=== PATIENT | male | born 1970 | race Caucasian/White ===

== ENCOUNTER 2020-07-06 04:16 | Inpatient (IN) | payer SELFPAY ==
[~2020-07-06] VITALS: Ht 172.7 cm; Wt 99.0 kg
[2020-07-06] MEDS ORDERED: ASPIRIN 81 MG CHEW (CHILDREN'S ASA) PO ONE (04:30)
[2020-07-06] MEDS ORDERED: PANTOPRAZOLE 40 MG (PROTONIX) VIAL IV STA (04:31)
[2020-07-06] MEDS ORDERED: ONDANSETRON 4 MG/2 ML (SDV) Z0FRAN IVP STA (04:31)
[2020-07-06] MEDS ORDERED: morphine INJ 10 MG/ML 1ML (SYR OR VIAL) IVP STA ×3 (04:31→08:13)
[2020-07-06] MEDS ORDERED: LORazepam INJ 2 MG/ML (ATIVAN) VIAL IVP STA (04:34)
[2020-07-06] MEDS ORDERED: HOLD METFORMIN - RECEIVED CONTRAST 20 ML VIAL IV SCH ×2 (04:45→13:00)
[2020-07-06] MEDS ORDERED: IOHEXOL 350 MG/ML 150 ML (OMNIPAQUE 350) VIAL IV ONE (04:45)
[2020-07-06] MEDS ORDERED: NS 100 ML (IVPB) BAG IV ONE ×2 (04:45→13:00)
--- NOTE | 2020-07-06 04:49 | ED Chest Pain ---
General Chief Complaint: Chest Pain Stated Complaint: CHEST PAIN Source: patient, EMS History of Present Illness Date Seen by Provider: Jul 06, 2020 Time Seen by Provider: 04:16 Initial Comments 49 yo male presenting by EMS with complaints of sharp chest pains, epigastric pain, n/v, heartburn. He is complaining of sharp pains that have been hurting all night. He states that 2 to 3 months ago he was diagnosed with a PE and never completed treatment for that. He has a history of a prior heart attack several years ago and does not take any medication for that. He does drink alcohol on a daily basis and drank some last night to try and help with his pain. He feels more short of breath tonight. He activated EMS to have them bring him to be evaluated. He usually goes to [facility] but the [facility] ambulance service refused to take him north and brought him here instead. He reports smoking a pack of cigarettes a day. He is moaning and short tempered with staff. Severity/Quality: severe, sharp Location: substernal, epigastric Radiation: no radiation Activities at Onset: none Prior CP/Workup: heart attack (reports heart attack 6-8 years ago at [facility] when having similar pains) ASA po CLEARANCE REP: No NTG SL CLEARANCE REP: No Associated Symptoms: abdominal pain, back pain (chronic pain with radiation down his legs); No diaphoresis, No dizziness, No fatigue, No fever/chills, No headache; heartburn, nausea/vomiting, shortness of breath; No syncope Allergies and Home Medications Allergies Coded Allergies: No Known Drug Allergies (Unverified , 07/06/20) Home Medications Mirtazapine 15 Mg Tablet, 15 MG PO HS, (Reported) Quetiapine Fumarate 400 Mg Tablet, 400 MG PO HS, (Reported) Patient Home Medication List Home Medication List Reviewed: Yes Review of Systems Review of Systems Constitutional: No chills, No diaphoresis, No fever EENTM: No Symptoms Reported Respiratory: Shortness of Air Cardiovascular: See HPI Gastrointestinal: Abdominal Pain (epigastric), Nausea, Vomiting Genitourinary: No Symptoms Reported Musculoskeletal: back pain (chronic pain in low back that radiates down his legs and has frequent falls) Skin: other (multiple sores at waist line) Psychiatric/Neurological: Anxiety Hematologic/Lymphatic: Blood Clots (reported PE diagnosed in [place] about 2 months ago but not taking medicine for it) Past Dhwtoig-Lvrfmh-Tkcrom Hx Past Med/Social Hx: Reviewed Nursing Past Med/Soc Hx Patient Social History Alcohol Use: Regular Use Alcohol Beverage of Choice: Vodka Smoking Status: Current Everyday Smoker Type Used: Cigarettes Past Medical History Respiratory: Yes COPD Cardiac: Yes Heart Attack, Hypertension Physical Exam Vital Signs Vital Signs - First Documented 07/06/20 07/06/20 07/06/20 04:20 05:40 06:12 Temp 37.4 Pulse 106 Resp 18 B/P (MAP) 127/68 (87) Pulse Ox 92 O2 Delivery Room Air O2 Flow Rate 2.00 Capillary Refill : Height, Weight, BMI Height: '" Weight: lbs. oz. kg; BMI Method: General Appearance: Moderate Distress (moaning and short tempered with staff), Obese HEENT: PERRL/EOMI Neck: Full Range of Motion, Non Tender, Supple Respiratory: Chest Non Tender, No Accessory Muscle Use, No Respiratory D istress, Decreased Breath Sounds Cardiovascular: Regular Rate, Rhythm, Normal Peripheral Pulses Gastrointestinal: Normal Bowel Sounds, No Pulsatile Mass, Soft, Tenderness (diffuse but worse in epigastric area) Extremity: Normal Capillary Refill, Pedal Edema (1+ BLE) Neurologic/Psychiatric: Alert, Oriented x3, sales secretary II-XII Norm as Tested Skin: Normal Color, Warm/Dry, Other (multiple tattoos. several small red areas in groin where he appears to have ticks attached) Images 1 - pain in substernal and epigastric area worse with palpation Progress/Results/Core Measures Results/Orders Lab Results Laboratory Tests Test 07/06/20 05:40 07/06/20 06:47 07/06/20 07:45 Range/Units White Blood Count 14.1 H 4.3-11.0 10^3/uL Red Blood Count 5.32 4.35-5.85 10^6/uL Hemoglobin 13.8 13.3-17.7 G/DL Hematocrit 42 40-54 % Mean Corpuscular Volume 80 80-99 FL Mean Corpuscular Hemoglobin 26 25-34 PG Mean Corpuscular Hemoglobin Concent 33 32-36 G/DL Red Cell Distribution Width 20.1 H 10.0-14.5 % Platelet Count 281 130-400 10^3/uL Mean Platelet Volume 9.6 7.4-10.4 FL Immature Granulocyte % (Auto) 0 % Neutrophils (%) (Auto) 76 H 42-75 % Lymphocytes (%) (Auto) 18 12-44 % Monocytes (%) (Auto) 5 0-12 % Eosinophils (%) (Auto) 0 0-10 % Basophils (%) (Auto) 0 0-10 % Neutrophils # (Auto) 10.7 H 1.8-7.8 X 10^3 Lymphocytes # (Auto) 2.5 1.0-4.0 X 10^3 Monocytes # (Auto) 0.8 0.0-1.0 X 10^3 Eosinophils # (Auto) 0.0 0.0-0.3 10^3/uL Basophils # (Auto) 0.1 0.0-0.1 10^3/uL Immature Granulocyte # (Auto) 0.1 0.0-0.1 10^3/uL Neutrophils % (Manual) 78 % Monocytes % (Manual) 8 % Band Neutrophils 14 % Prothrombin Time 13.3 12.2-14.7 SEC INR Comment 1.0 0.8-1.4 Activated Partial Thromboplast Time 29 24-35 SEC D-Dimer 0.57 H 0.00-0.49 UG/ML Blood Gas Puncture Site LEFT RADIAL Blood Gas Patient Temperature 37.4 Arterial Blood pH 7.44 H 7.37-7.43 Arterial Blood Partial Pressure CO2 48 H 35-45 MMHG Arterial Blood Partial Pressure O2 46 L 79-93 MMHG Arterial Blood HCO3 33 H 23-27 MMOL/L Arterial Blood Total CO2 34.1 H 21.0-31.0 MMOL/L Arterial Blood Oxygen Saturation 83 L 94-100 % Arterial Blood Base Excess 7.3 H -2.5-2.5 MMOL/L Tito Test NEGATIVE Blood Gas Ventilator Setting NO Blood Gas Inspired Oxygen ROOM AIR Sodium Level 141 135-145 MMOL/L Potassium Level 3.7 3.6-5.0 MMOL/L Chloride Level 93 L 98-107 MMOL/L Carbon Dioxide Level 28 21-32 MMOL/L Anion Gap 20 H 5-14 MMOL/L Blood Urea Nitrogen 20 H 7-18 MG/DL Creatinine 0.59 L 0.60-1.30 MG/DL Estimat Glomerular Filtration Rate > 60 BUN/Creatinine Ratio 34 Glucose Level 84 70-105 MG/DL Calcium Level 9.3 8.5-10.1 MG/DL Corrected Calcium 8.5-10.1 MG/DL Magnesium Level 2.0 1.6-2.4 MG/DL Total Bilirubin 0.3 0.1-1.0 MG/DL Aspartate Amino Transf (AST/SGOT) 29 5-34 U/L Alanine Aminotransferase (ALT/SGPT) 30 0-55 U/L Alkaline Phosphatase 110 40-136 U/L Troponin I < 0.30 < 0.30 <0.30 NG/ML Pro-B-Type Natriuretic Peptide 59.0 <75.0 PG/ML Total Protein 8.0 6.4-8.2 GM/DL Albumin 4.6 H 3.2-4.5 GM/DL Lipase 11 8-78 U/L Serum Alcohol 168 H <10 MG/DL Urine Color YELLOW Urine Clarity CLEAR Urine pH 6.0 5-9 Urine Specific Mears >=1.030 1.016-1.022 Urine Protein 2+ H NEGATIVE Urine Glucose (UA) NEGATIVE NEGATIVE Urine Ketones 1+ H NEGATIVE Urine Nitrite NEGATIVE NEGATIVE Urine Bilirubin NEGATIVE NEGATIVE Urine Urobilinogen 0.2 < = 1.0 MG/DL Urine Leukocyte Esterase NEGATIVE NEGATIVE Urine RBC (Auto) NEGATIVE NEGATIVE Urine RBC NONE /HPF Urine WBC 0-2 /HPF Urine Crystals NONE /LPF Urine Bacteria TRACE /HPF Urine Casts PRESENT /LPF Urine Hyaline Casts 0-2 H /LPF Urine Mucus SMALL H /LPF Urine Culture Indicated NO Urine Opiates Screen NEGATIVE NEGATIVE Urine Oxycodone Screen NEGATIVE NEGATIVE Urine Methadone Screen NEGATIVE NEGATIVE Urine Propoxyphene Screen NEGATIVE NEGATIVE Urine Barbiturates Screen NEGATIVE NEGATIVE Ur Tricyclic Antidepressants Screen POSITIVE H NEGATIVE Urine Phencyclidine Screen NEGATIVE NEGATIVE Urine Amphetamines Screen NEGATIVE NEGATIVE Urine Methamphetamines Screen NEGATIVE NEGATIVE Urine Benzodiazepines Screen NEGATIVE NEGATIVE Urine Cocaine Screen NEGATIVE NEGATIVE Urine Cannabinoids Screen NEGATIVE NEGATIVE My Orders Orders - KARLEY OSORIO MD Cbc With Automated Diff (07/06/20 04:30) Magnesium (07/06/20 04:30) Chest 1 View Ap/Pa Only (07/06/20 04:30) Ekg Tracing (07/06/20 04:30) Comprehensive Metabolic Panel (07/06/20 04:30) Protime With Inr (07/06/20 04:30) Partial Thromboplastin Time (07/06/20 04:30) O2 (07/06/20 04:30) Monitor-Rhythm Ecg Trace Only (07/06/20 04:30) Aspirin Chewable Tablet (Baby Aspirin Ch (07/06/20 04:30) Ed Iv/Invasive Line Start (07/06/20 04:30) Lipase (07/06/20 04:30) Troponin I Fs (07/06/20 04:30) Probnp Fs (07/06/20 04:30) Pantoprazole Injection (Protonix Injecti (07/06/20 04:31) Alcohol (07/06/20 04:33) Ua Culture If Indicated (07/06/20 04:33) Drug Screen Stat (Urine) (07/06/20 04:33) Iohexol Injection (Omnipaque 350 Mg/Ml 1 (07/06/20 04:45) Received Contrast (Hold Metformin- Contr (07/06/20 04:45) Ns (Ivpb) (Sodium Chloride 0.9% Ivpb Bag (07/06/20 04:45) Ondansetron Oral Dissolve Tab (Zofran (07/06/20 05:09) Lidocaine 2% Viscous 15 Ml (Xylocaine Vi (07/06/20 05:15) Antacid Suspension (Mylanta Suspension (07/06/20 05:15) Nitroglycerin Ointment (Nitrobid Ointme (07/06/20 05:12) Manual Differential (07/06/20 05:40) Arterial Blood Gas (07/06/20 05:40) Morphine Injection (Morphine Injection (07/06/20 06:22) Enoxaparin Injection (Lovenox Injection) (07/06/20 06:22) Ns Iv 1000 Ml (Sodium Chloride 0.9%) (07/06/20 06:22) Fibrin Degradation Products (07/06/20 07:28) Morphine Injection (Morphine Injection (07/06/20 08:13) Medications Given in ED Vital Signs/I&O 07/06/20 07/06/20 07/06/20 07/06/20 04:20 04:20 05:40 06:12 Temp 37.4 37.4 Pulse 106 98 Resp 18 18 B/P (MAP) 127/68 (87) Pulse Ox 92 99 99 O2 Delivery Room Air Room Air Nasal Cannula Nasal Cannula O2 Flow Rate 2.00 2.00 2.00 07/06/20 07/06/20 08:38 09:00 Temp 37.4 37.4 Pulse 97 Resp 14 B/P (MAP) 137/90 (87) Pulse Ox 95 O2 Delivery Nasal Cannula O2 Flow Rate 2.00 Progress Progress Note #1: Progress Note placed on cardiac slitting machine operator helper with complaint of chest pain and initial rate of 100 with sinus rhythm without ectopy. Patient is hypoxic so will place on oxygen and order aspirin as well as Morphine for pain, Zofran for nausea, protonix for epigastric pain/heartburn. Progress Note #2: Progress Note Patient was a very difficult IV access patient and took multiple sticks to be able to obtain blood as well as a small 22-gauge IV access. He finally had an ABG drawn and arterial blood drawn to be able to get blood work. He has improvement in his pain with getting a GI cocktail for the burning sensation. He had improved epigastric and chest pain after morphine. His initial EKG does not show any ST elevation. His initial labs show a negative troponin at less than 0.3. His alcohol level did come back elevated at 168. He had a mild elevation of his white blood cell count of 14.1 with a left shift. His chest x- ray was clear without acute infiltrate or effusion. He does have a calcified granuloma in the right lateral lung. With his ABG he appeared to be somewhat compensated with a pH of 7.44, PCO2 of 68, P O2 64 and a O2 sat of 83% on room air. With 2 L by nasal cannula and moving his O2 sat probe to his forehead to be able to pickler helper his saturation better he did have levels of 96-100%. He was somnolent when he was not being stuck for blood but would still intermittently moan and cry out. He repeatedly asked for pain medicine and when he was told he was being given Morphine his pain almost immediately went from 9 out of 10 to 3-4 out of 10. With his report of recent untreated or only partially treated PE, hypoxia, history of alcohol abuse, history of reported heart attack will discuss admit with Hospitalist. Will give Lovenox 1 mg/kg while waiting on all of his results and to discuss with the hospitalist. 0725 d/w Dr. Pearce and will admit for hypoxia, chest pain. Add on D dimer to his coags and may need to have additional IV access or testing in [facility] since he reports history of recent PE and blood clots but has not been taking medicine. Initial ECG Impression Date: Jul 06, 2020 Initial ECG Impression Time: 04:29 Initial ECG Rate: 99 Initial ECG Rhythm: Normal Sinus Initial ECG Comparisson: No Previous ECG Available Comment Normal sinus rhythm with a heart rate of [address] elevation. QT interval 362 ms with a QTc interval 465 ms. No prior tracing available for comparison. Diagnostic Imaging Diagonstic Imaging: Xray Plain Films/CT/US/NM/MRI: chest Comments poor inspiratory effort, nodule in right lateral lung, increased perihilar lung markings and blunting of the costophrenic angles on my review of his 1 view CXR. NAME: FAVIAN SEARS [facility] REC#: [id number] PT STATUS: REG ER : 1970 PHYSICIAN: KARLEY OSORIO MD ADMIT DATE: 07/06/20/ER FS Draft Date of Exam:07/06/20 CHEST 1 VIEW AP/PA ONLY Indication: Chest pain Portable chest 4:46 AM Heart size and pulmonary vascularity are normal. There is calcified granuloma in the right lower lateral chest. There are no infiltrates, effusions or pneumothoraces. IMPRESSION: No acute abnormalities in the chest. Dictated on workstation # [id number] Dict: 07/06/20 0639 Trans: 07/06/20 0640 [facility] [id number] Interpreted by: BERHANE GREEN MD Electronically signed by: Reviewed: Reviewed by Me Departure Communication (Admissions) Time/Spoke to Admitting Phy: 07:25 d/w Dr. Pearce about admit for chest pain, hypoxia and to get serial enzymes and possible CT angiogram and further work up of untreated PE. Time/Spoke to Consulting Phy: 07:[address] Webb to let him know about the consult on the chest pain and h ypoxia patient Impression Primary Impression: Hypoxia Additional Impressions: Alcohol intoxication Qualified Codes: F10.920 - Alcohol use, unspecified with intoxication, uncomplicated Substernal chest pain Epigastric abdominal pain Tick bite of groin Qualified Codes: S30.861A - Insect bite (nonvenomous) of abdominal wall, initial encounter; W57.XXXA - Bitten or stung by nonvenomous insect and other nonvenomous arthropods, initial encounter Disposition: 30 STILL A PATIENT Condition: Stable Admissions Decision to Admit Reason: Admit from ER (General) Decision to Admit/Date: Jul 06, 2020 Time/Decision to Admit Time: 07:25 KARELY OSORIO MD Jul 06, 2020 04:49
[2020-07-06] MEDS ORDERED: ONDANSETRON 4 MG (ZOFRAN) ORAL DISSOLVE TAB PO STA (05:09)
[2020-07-06] MEDS ORDERED: morphine INJ 10 MG/ML 1ML (SYR OR VIAL) IM STA (05:09)
[2020-07-06] MEDS ORDERED: LORazepam INJ 2 MG/ML (ATIVAN) VIAL IM STA (05:09)
[2020-07-06] MEDS ORDERED: NITROGLYCERIN 2% OINT 1 GM UNIT DOSE PACKET TOP STA (05:12)
[2020-07-06] MEDS ORDERED: LIDOCAINE 2% VISCOUS 15 ML UDC PO ONE (05:15)
[2020-07-06] MEDS ORDERED: ANTACID SUSP 30 ML UDC (MYLANTA) PO ONE (05:15)
[2020-07-06 05:44] LABS: HEMATOCRIT 42 % (40-54); HEMOGLOBIN 13.8 G/DL (13.3-17.7); MEAN CORPUSCULAR HEMOGLOBIN 26 PG (25-34); WHITE BLOOD COUNT 14.1 10^3/uL (4.3-11.0)
[2020-07-06 05:45] LABS: BASOPHILS # (AUTO) 0.1 10^3/uL (0.0-0.1); BASOPHILS % (AUTO) 0 % (0-10); EOSINOPHILS % (AUTO) 0 % (0-10); LYMPHOCYTES # (AUTO) 2.5 X 10^3 (1.0-4.0); LYMPHOCYTES % (AUTO) 18 % (12-44); MEAN CORPUSCULAR HGB CONC 33 G/DL (32-36); MEAN CORPUSCULAR VOLUME 80 FL (80-99); MEAN PLATELET VOLUME 9.6 FL (7.4-10.4); MONOCYTES # (AUTO) 0.8 X 10^3 (0.0-1.0); MONOCYTES % (AUTO) 5 % (0-12); NEUTROPHILS # (AUTO) 10.7 X 10^3 (1.8-7.8); NEUTROPHILS % (AUTO) 76 % (42-75); PLATELET COUNT 281 10^3/uL (130-400)
[2020-07-06 05:51] LABS: ABG BASE EXCESS 7.3 MMOL/L (-2.5-2.5); ABG OXYGEN SATURATION 83 % (94-100); ABG PCO2 48 MMHG (35-45); ABG PH 7.44 (7.37-7.43); ABG PO2 46 MMHG (79-93); ABG TCO2 34.1 MMOL/L (21.0-31.0)
[2020-07-06 05:52] LABS: ALLENS TEST NEGATIVE
[2020-07-06 05:53] LABS: INSPIRED O2 ROOM AIR; PATIENT TEMP 37.4; VENTILATOR NO
[2020-07-06 05:55] LABS: PROTHROMBIN TIME PATIENT 13.3 SEC (12.2-14.7)
[2020-07-06 06:01] LABS: LIPASE 11 U/L (8-78)
[2020-07-06 06:04] LABS: CARBON DIOXIDE 28 MMOL/L (21-32); CHLORIDE 93 MMOL/L (98-107); POTASSIUM 3.7 MMOL/L (3.6-5.0); SODIUM 141 MMOL/L (135-145)
[2020-07-06 06:05] LABS: ALANINE AMINOTRANSFERASE 30 U/L (0-55); ALBUMIN 4.6 GM/DL (3.2-4.5); ALKALINE PHOSPHATASE 110 U/L (40-136); BILIRUBIN,TOTAL 0.3 MG/DL (0.1-1.0); BUN/CREATININE RATIO 34; CALCIUM 9.3 MG/DL (8.5-10.1); CREATININE SERUM 0.59 MG/DL (0.60-1.30); GFR ESTIMATED > 60; GLUCOSE 84 MG/DL (70-105)
[2020-07-06 06:22] LABS: BAND NEUTROPHILS 14 %; MONOCYTES % (MANUAL) 8 %; NEUTROPHILS % (MANUAL) 78 %
[2020-07-06] MEDS ORDERED: ENOXAPARIN 100 MG/1 ML (LOVENOX) SYR SC STA (06:22)
[2020-07-06] MEDS ORDERED: NS IV 1000 ML 1,000 ML IV STA (06:22)
--- NOTE | 2020-07-06 06:41 | Diagnostic Imaging Report ---
Indication: Chest pain Portable chest 4:46 AM Heart size and pulmonary vascularity are normal. There is calcified granuloma in the right lower lateral chest. There are no infiltrates, effusions or pneumothoraces. IMPRESSION: No acute abnormalities in the chest. Dictated by: Dictated on workstation # [id number]
[2020-07-06 06:59] LABS: BILIRUBIN,URINE NEGATIVE (NEGATIVE); CLARITY,URINE CLEAR; COLOR,URINE YELLOW; GLUCOSE, URINE (UA) NEGATIVE (NEGATIVE); KETONES,URINE 1+ (NEGATIVE); LEUKOCYTE ESTERASE ,URINE NEGATIVE (NEGATIVE); NITRITE,URINE NEGATIVE (NEGATIVE); PROTEIN,URINE 2+ (NEGATIVE); WBC,URINE 0-2 /HPF
[2020-07-06 07:00] LABS: BACTERIA,URINE TRACE /HPF; HYALINE CASTS, URINE 0-2 /LPF
[2020-07-06 07:06] LABS: AMPHETAMINE SCREEN, URINE NEGATIVE (NEGATIVE); BARBITURATE SCREEN URINE NEGATIVE (NEGATIVE); BENZODIAZEPINES SCREEN URINE NEGATIVE (NEGATIVE); CANNABINOID SCREEN, URINE NEGATIVE (NEGATIVE); COCAINE SCREEN URINE NEGATIVE (NEGATIVE); METHADONE STAT NEGATIVE (NEGATIVE); METHAMPHETAMINE SCREEN URINE S NEGATIVE (NEGATIVE); OPIATE SCREEN URINE NEGATIVE (NEGATIVE); OXYCODONE STAT NEGATIVE (NEGATIVE); PROPOXYPHENE STAT NEGATIVE (NEGATIVE); TRICYCLIC ANTIDEPRESSANTS SCRE POSITIVE (NEGATIVE)
[2020-07-06] MEDS ORDERED: NS IV 1000 ML 1,000 ML ONE (10:08)
[2020-07-06] MEDS: NS IV 1000 ML 1,000 ML IV SCH ×2 (10:23→20:12)
[2020-07-06] MEDS ORDERED: NITROGLYCERIN 0.4 MG SL TABS BTL 25'S SL PRN (11:30)
[2020-07-06] MEDS ORDERED: morphine INJ 4 MG/ML 1 ML (VIAL/SYRINGE) IV PRN (11:30)
[2020-07-06] MEDS ORDERED: ONDANSETRON 4 MG/2 ML (SDV) Z0FRAN IV PRN (11:30)
[2020-07-06] MEDS ORDERED: REGADENOSON 0.4 MG/5 ML SYR (LEXISCAN) IV ONE (12:00)
[2020-07-06] MEDS ORDERED: ENOXAPARIN 100 MG/1 ML (LOVENOX) SYR SC SCH (12:00)
--- NOTE | 2020-07-06 12:34 | History & Physical-Hospitalist ---
PAM WREN MED STUDENT 07/06/20 1234: History of Present Illness HPI/Chief Complaint Mr. Kidd is a 49 year old man seen today due to chest pain and shortness of breath. He reports having sudden 8/10 sharp chest pain across his chest and epigastric region, at times radiating to his left shoulder. The pain is constant. He denies any inciting event for the pain or shortness of breath, and denies that anything aggravates or alleviates the pain. He did attempt to treat the pain by drinking a half pint of vodka, but this did not help his pain. He reports being hospitalized for a pulmonary embolism in a hospital in [place] several months ago, but did not remember which, and did not take any medication after being released from the hospital. He reports that the pain he is having now is the same as the pain from that hospitalization for a pulmonary embolism. He reports having some intermittent dizziness since yesterday, as well as nausea with one episode of vomiting due to pain. He also reports having pain buttock pain bilaterally that is aggravated by standing up, and radiates down the back of his legs to his knees. He denies having any fevers or chills, vision or sensory changes, palpitations, edema, cough, constipation, diarrhea, dysuria or frequency. Source: patient Exam Limitations: no limitations Date Seen 07/06/20 Time Seen by a Provider: 10:45 Attending Physician Med Pearce MD PCP No,Local Physician Referring Physician Date of Admission Jul 06, 2020 at 09:10 Home Medications & Allergies Home Medications Reviewed patient Home Medication Reconciliation performed by pharmacy medication reconciliations vibration technician and/or nursing. Patients Allergies have been reviewed. Allergies Allergies Coded Allergies No Known Drug Allergies (Unverified07/06/20) Patient Social History Tobacco Use?: Yes Tobacco type used: Cigarettes Smoking Status: Current Everyday Smoker Alcohol Use?: Yes Alcohol type: Beer Alcohol Frequency: Rarely Pt stated abuse/neglect: No Immunizations Up To Date Influenza Vaccine Up-to-Date: No; Not Current Current Status Do you have an Advance Directi: No Communicates: Verbally Primary Language: Belizean Preferred Spoken Language: Belizean Is interpretation needed?: No Review of Systems Constitutional: No chills; dizziness; No fever EENTM: No hearing loss, No blurred vision, No double vision, No vision loss Respiratory: No cough; dyspnea on exertion, short of breath Cardiovascular: chest pain; No edema, No palpitations, No syncope Gastrointestinal: abdominal pain (epigastric and of lower quadrants); No constipation, No diarrhea; nausea, vomiting Genitourinary: No dysuria, No frequency, No hesitancy Musculoskeletal: back pain (buttock pain) Psychiatric/Neurological: Denies Headache; Numbness (chronic neuropathy of hand s and feet ), Paresthesia (radiating down legs to knees), Tingling (chronic neuropathy of hands and feet ); Denies Weakness Physical Exam Physical Exam Vital Signs Vital Signs - First Documented 07/06/20 07/06/20 07/06/20 04:20 05:40 06:12 Temp 37.4 Pulse 106 Resp 18 B/P (MAP) 127/68 (87) Pulse Ox 92 O2 Delivery Room Air O2 Flow Rate 2.00 Capillary Refill : Less Than 3 Seconds Height, Weight, BMI Height: '" Weight: lbs. oz. kg; 33.72 BMI Method: General Appearance: No Apparent Distress, Obese Eyes: Bilateral Eye PERRL, Bilateral Eye EOMI HEENT: PERRL/EOMI; No Pale Conjunctivae (L), No Pale Conjunctivae (R), No Scleral Icterus (L), No Scleral Icterus (R) Neck: Normal Inspection, Non Tender, Supple Respiratory: Lungs Clear, No Accessory Muscle Use, No Respiratory Distress, Other (chest tender to palpation) Cardiovascular: Regular Rate, Rhythm, No Edema, No Murmur, Normal Peripheral Pulses Gastrointestinal: Normal Bowel Sounds, No Organomegaly, Soft, Tenderness (epigastric and lower quadrant tenderness) Extremity: Normal Capillary Refill, Normal Inspection, Non Tender, No Calf Ten derness, No Pedal Edema Neurologic/Psychiatric: Alert, Oriented x3, Normal Mood/Affect Skin: Normal Color, Damp (somewhat damp from sweating) Results Results/Procedures Labs Laboratory Tests 07/06/20 05:40 Patient resulted labs reviewed. 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 CT does reveal bibasilar subsegmental atelectasis as well as distal esophageal wall thickening, recommends correlation with endoscopy for further evaluation. * D-dimer elevated at 0.57 * Troponins trending, negative so far * Enoxaparin 100 mg sc bid * Acetaminophen 500 mg q4h prn for chest pain * Nitro 0.4 mg prn * Aspirin 81 mg po Nausea/Vomiting * With metabolic alkalosis on ABG, history of vomiting this morning after alcohol the previous night, as well as tenderness to palpation of chest and epigastric region, and GI cocktail in ED alleviating chest pain somewhat, vomiting may be a cause of chest pain * Pantoprazole 40 mg * Ondansetron 4 mg IV prn Tick bites * ticks found on exam, serologies pending * Doxycycline 200 mg PO Bipolar disorder * resume home quetiapine COPD * reports history of COPD but does not take any medications Clinical Quality Measures AMI/AHF: ASA po Prior to arrival: MED Chauhan MD 07/06/20 1531: Assessment/Plan Admission Diagnosis Chest pain Admission Status: Inpatient Order (span 2 midnights) Reason for Inpatient Admission: see below Assessment and Plan Patient has very complex history. I am unsure what his exact history is as it cahnges and varies from person to person. I will request records from [facility] to confirm PE. Repeat CTA ordered to evaluate for PE. Ca rdiology consulted for chest pain. Plan for stress test tomorrow. I was informed by nursing that he had multiple tick bites on him. Nursing to remove and I will treat with doxycycline for prophylaxis after discussion with Infection control. Encouraged smoking cessation but he states he is not ready. He reports long history of alcohol use but sobriety for 3 months prior to the night of admission when he drank to help with this pain. He is requesting only morphine for his pain but as he can take food in orally I informed him he will receive oral medications to control his pain in preparation for DC. Supervisory-Addendum Brief Verification & Attestation Participated in pt care: history, MDM, physical Personally performed: exam, history, MDM, supervision of care Care discussed with: Medical Student Procedures: n/a Results interpretation: Verified all documentation Verification and Attestation of Medical Student E/M Service A medical student performed and documented this service in my presence. I reviewed and verified all information documented by the medical student and made modifications to such information, when appropriate. I personally performed the physical exam and medical decision making. Med Pearce, Jul 06, 2020,15:25 PAM WREN MED STUDENT Jul 06, 2020 12:34 MED PEARCE MD Jul 06, 2020 15:31
--- NOTE | 2020-07-06 12:35 | Consultation-Cardiology ---
HPI-Cardiology Cardiology Consultation Date of Consultation 07/06/20 Date of Admission Time Seen by Provider: 11:45 Indication: Chest pain r/o HPI Cardiology was consulted for chest pain r/o. Mr. Kidd is a 49-year-old male who presented to the ED via EMS for chest pain since yesterday. He states it started when he was sitting down and had associated shortness of breath, dizziness, and left arm/shoulder pain. He denies any headache, blurred vision, or diaphoresis. It is centralized, sharp pain rati ng 8. Tried to resolve pain with alcohol but did not. Did not improve with nitroglycerin in the ED but did with morphine. Is currently wearing oxygen but denies home oxygen. He previously had an episode like this recently and was diagnosed with a PE. Has not been taking his anticoagulant due to cost. Admits to prior NM but does not have more information on this. We are requesting records from [facility] for these medical history. In the ED, troponins have been normal. EKG was NSR without ST elevation or changes. Home Medications & Allergies Allergies: Coded Allergies: No Known Drug Allergies (Unverified , 07/06/20) Home Medication List Reviewed: Yes [id number] Hx Patient Social History Recreational Drug Use: No Smoking Status: Current Everyday Smoker Type Used: Cigarettes Recent Hopitalizations: No Have you traveled recently?: No Alcohol Use?: Yes Past Medical History PMHx: Neuropathy COPD Bipolar disorder Manic depression HLD HTN PSHx: Orthopedic surgery Family Medical History Significant Family History: Heart Disease, Diabetes Review of Systems-General Review of Systems Constitutional: No chills, No diaphoresis; dizziness; No fever EENTM: No blurred vision, No double vision Respiratory: No cough; short of breath Cardiovascular: see HPI, chest pain; No palpitations Gastrointestinal: see HPI; No nausea; vomiting Genitourinary: no symptoms reported Musculoskeletal: back pain (chronic pain in low back that radiates down his legs and has frequent falls) Skin: other (multiple sores at waist line) Psychiatric/Neurological: Anxiety Reviewed Test Results Reviewed Test Results Lab Laboratory Tests Test 07/06/20 05:40 07/06/20 06:47 07/06/20 07:45 07/06/20 12:10 Range/Units White Blood Count 14.1 H 4.3-11.0 10^3/uL Red Blood Count 5.32 4.35-5.85 10^6/uL Hemoglobin 13.8 13.3-17.7 G/DL Hematocrit 42 40-54 % Mean Corpuscular Volume 80 80-99 FL Mean Corpuscular Hemoglobin 26 25-34 PG Mean Corpuscular Hemoglobin Concent 33 32-36 G/DL Red Cell Distribution Width 20.1 H 10.0-14.5 % Platelet Count 281 130-400 10^3/uL Mean Platelet Volume 9.6 7.4-10.4 FL Immature Granulocyte % (Auto) 0 % Neutrophils (%) (Auto) 76 H 42-75 % Lymphocytes (%) (Auto) 18 12-44 % Monocytes (%) (Auto) 5 0-12 % Eosinophils (%) (Auto) 0 0-10 % Basophils (%) (Auto) 0 0-10 % Neutrophils # (Auto) 10.7 H 1.8-7.8 X 10^3 Lymphocytes # (Auto) 2.5 1.0-4.0 X 10^3 Monocytes # (Auto) 0.8 0.0-1.0 X 10^3 Eosinophils # (Auto) 0.0 0.0-0.3 10^3/uL Basophils # (Auto) 0.1 0.0-0.1 10^3/uL Immature Granulocyte # (Auto) 0.1 0.0-0.1 10^3/uL Neutrophils % (Manual) 78 % Monocytes % (Manual) 8 % Band Neutrophils 14 % Prothrombin Time 13.3 12.2-14.7 SEC INR Comment 1.0 0.8-1.4 Activated Partial Thromboplast Time 29 24-35 SEC D-Dimer 0.57 H 0.00-0.49 UG/ML Blood Gas Puncture Site LEFT RADIAL Blood Gas Patient Temperature 37.4 Arterial Blood pH 7.44 H 7.37-7.43 Arterial Blood Partial Pressure CO2 48 H 35-45 MMHG Arterial Blood Partial Pressure O2 46 L 79-93 MMHG Arterial Blood HCO3 33 H 23-27 MMOL/L Arterial Blood Total CO2 34.1 H 21.0-31.0 MMOL/L Arterial Blood Oxygen Saturation 83 L 94-100 % Arterial Blood Base Excess 7.3 H -2.5-2.5 MMOL/L Tito Test NEGATIVE Blood Gas Ventilator Setting NO Blood Gas Inspired Oxygen ROOM AIR Sodium Level 141 135-145 MMOL/L Potassium Level 3.7 3.6-5.0 MMOL/L Chloride Level 93 L 98-107 MMOL/L Carbon Dioxide Level 28 21-32 MMOL/L Anion Gap 20 H 5-14 MMOL/L Blood Urea Nitrogen 20 H 7-18 MG/DL Creatinine 0.59 L 0.60-1.30 MG/DL Estimat Glomerular Filtration Rate > 60 BUN/Creatinine Ratio 34 Glucose Level 84 70-105 MG/DL Calcium Level 9.3 8.5-10.1 MG/DL Corrected Calcium 8.5-10.1 MG/DL Magnesium Level 2.0 1.6-2.4 MG/DL Total Bilirubin 0.3 0.1-1.0 MG/DL Aspartate Amino Transf (AST/SGOT) 29 5-34 U/L Alanine Aminotransferase (ALT/SGPT) 30 0-55 U/L Alkaline Phosphatase 110 40-136 U/L Troponin I < 0.30 < 0.30 < 0.028 <0.028 NG/ML Pro-B-Type Natriuretic Peptide 59.0 <75.0 PG/ML Total Protein 8.0 6.4-8.2 GM/DL Albumin 4.6 H 3.2-4.5 GM/DL Lipase 11 8-78 U/L Serum Alcohol 168 H <10 MG/DL Urine Color YELLOW Urine Clarity CLEAR Urine pH 6.0 5-9 Urine Specific [place]on >=1.030 1.016-1.022 Urine Protein 2+ H NEGATIVE Urine Glucose (UA) NEGATIVE NEGATIVE Urine Ketones 1+ H NEGATIVE Urine Nitrite NEGATIVE NEGATIVE Urine Bilirubin NEGATIVE NEGATIVE Urine Urobilinogen 0.2 < = 1.0 MG/DL Urine Leukocyte Esterase NEGATIVE NEGATIVE Urine RBC (Auto) NEGATIVE NEGATIVE Urine RBC NONE /HPF Urine WBC 0-2 /HPF Urine Crystals NONE /LPF Urine Bacteria TRACE /HPF Urine Casts PRESENT /LPF Urine Hyaline Casts 0-2 H /LPF Urine Mucus SMALL H /LPF Urine Culture Indicated NO Urine Opiates Screen NEGATIVE NEGATIVE Urine Oxycodone Screen NEGATIVE NEGATIVE Urine Methadone Screen NEGATIVE NEGATIVE Urine Propoxyphene Screen NEGATIVE NEGATIVE Urine Barbiturates Screen NEGATIVE NEGATIVE Ur Tricyclic Antidepressants Screen POSITIVE H NEGATIVE Urine Phencyclidine Screen NEGATIVE NEGATIVE Urine Amphetamines Screen NEGATIVE NEGATIVE Urine Methamphetamines Screen NEGATIVE NEGATIVE Urine Benzodiazepines Screen NEGATIVE NEGATIVE Urine Cocaine Screen NEGATIVE NEGATIVE Urine Cannabinoids Screen NEGATIVE NEGATIVE Physical Exam Physical Exam Vital Signs Vital Signs - First Documented 07/06/20 07/06/20 07/06/20 04:20 05:40 06:12 Temp 37.4 Pulse 106 Resp 18 B/P (MAP) 127/68 (87) Pulse Ox 92 O2 Delivery Room Air O2 Flow Rate 2.00 Capillary Refill : Less Than 3 Seconds Height, Weight, BMI Height: '" Weight: lbs. oz. kg; 33.72 BMI Method: General Appearance: Moderate Distress, Obese HEENT: PERRL/EOMI Neck: Full Range of Motion, Non Tender, Supple Respiratory: Chest Non Tender, No Accessory Muscle Use, No Respiratory Distress, Decreased Breath Sounds Cardiovascular: Regular Rate, Rhythm, Normal Peripheral Pulses, Other (reproducible chest pain to palpation) Gastrointestinal: Normal Bowel Sounds, Non Tender, Soft, Tenderness (diffuse but worse in epigastric area) Extremity: Normal Capillary Refill, Pedal Edema (1+ BLE) Neurologic/Psychiatric: Alert, Oriented x3, benefit specialist II-XII Norm as Tested Skin: Normal Color, Warm/Dry A/P-Cardiology Admission Diagnosis Hypoxia Chest pain History of PE Insect bite Assessment/Plan Chest pain and hypoxia, reporting history of pulmonary embolism, had not taking oral anticoagulation, reported that he could not afford it. I started him on Lovenox and will reevaluate CT angiogram of the chest Questionable history of coronary artery disease, having reproducible chest pain, I am planning to evaluate stress test and echocardiogram. Started on Lovenox and aspirin. Hypertension, will not restart medications at this time, monitor closely. Suspected hyperlipidemia, will order lipid panel. Pt denies PCP. Tobaccoism, recommend complete cessation. Alcoholism, recommend complete cessation. Insect bite, work-up per primary team. Bipolar disorder, per primary team. Family history of heart disease and DM. Thank you for this consultation. Clinical Quality Measures AMI/AHF: ASA po Prior to arrival: No Supervisory-Addendum Brief Verification & Attestation Participated in pt care: history, MDM, physical Personally performed: exam, history, MDM, supervision of care Care discussed with: Medical Student Procedures: n/a Results interpretation: Verified all documentation Verification and Attestation of Medical Student E/M Service A medical student performed and documented this service in my presence. I reviewed and verified all information documented by the medical student and made modifications to such information, when appropriate. I personally performed the physical exam and medical decision making. Abdifatah Webb, Jul 06, 2020,14:52 GRANT AGUILA, Jul 06, 2020 12:35 ABDIFATAH WEBB MD Jul 06, 2020 14:52
[2020-07-06] MEDS ORDERED: IOHEXOL 350 MG/ML 100 ML (OMNIPAQUE 350) VIAL IV ONE (13:00)
[2020-07-06] MEDS ORDERED: CATHETER FLUSH 10 ML SYR IV PRN (13:00)
--- NOTE | 2020-07-06 14:01 | Diagnostic Imaging Report ---
PROCEDURE: CT angiography of the chest with contrast. TECHNIQUE: Multiple contiguous axial images were obtained through the chest after uneventful bolus administration of intravenous contrast. 3D reconstructed CTA MIP acquisitions were also performed. Auto Exposure Controls were utilized during the CT exam to meet ALARA standards for radiation dose reduction. INDICATION: Hypoxia. COMPARISON: No prior studies are available for comparison. FINDINGS: Evaluation of the pulmonary arterial system is without evidence of thromboembolism. No definite filling defects are seen within central, lobar or segmental branches. Thoracic aorta is normal caliber. There is no dissection. No pericardial or pleural fluid is identified. Lung bases demonstrate linear atelectasis bilaterally, greatest on the left. There is calcified granuloma in the right lower lobe. There does appear to be circumferential wall thickening of the distal esophagus. Upper abdomen is unremarkable. IMPRESSION: 1. No evidence of pulmonary embolism or thoracic aortic dissection. 2. Bibasilar subsegmental atelectasis. 3. Distal esophageal wall thickening. Correlation with endoscopy would be recommended for further evaluation. Dictated by: Dictated on workstation # [id number]
[2020-07-06] MEDS ORDERED: DOXYCYCLINE 100 MG (VIBRAMYCIN) TABLET PO NR (14:15)
[2020-07-06] MEDS ORDERED: MIRT15TA6 PO (14:32)
[2020-07-06] MEDS ORDERED: QUET400T12 PO (14:32)
[2020-07-06] MEDS: ACETAMINOPHEN 500 MG TAB (TYLENOL) PO PRN ×3 (15:08→23:36)
[2020-07-06] MEDS ORDERED: CALCIUM CARBONATE 500 MG (TUMS) TAB.CHEW ONE (17:09)
[2020-07-06] MEDS: CALCIUM CARBONATE 500 MG (TUMS) TAB.CHEW PO PRN ×3 (17:17→20:10)
[2020-07-06] MEDS: ENOXAPARIN 100 MG/1 ML (LOVENOX) SYR SC SCH (18:36)
[2020-07-06] MEDS ORDERED: QUEtiapine 200 MG (SEROquel) TAB IMMEDIATE RELEASE PO SCH (21:00)
[2020-07-06] MEDS ORDERED: MIRTAZAPINE 15 MG (REMERON) TAB PO SCH (21:00)
[2020-07-07 03:46] LABS: HEMOGLOBIN 11.5 g/dL (13.3-17.7); MEAN PLATELET VOLUME 10.4 fL (9.0-12.2); WHITE BLOOD COUNT 7.7 10^3/uL (4.3-11.0)
[2020-07-07 04:08] LABS: ALANINE AMINOTRANSFERASE 21 U/L (0-55); ALBUMIN 3.5 GM/DL (3.2-4.5); ALKALINE PHOSPHATASE 75 U/L (40-136); BILIRUBIN,TOTAL 0.5 MG/DL (0.1-1.0); BUN/CREATININE RATIO 24; CALCIUM 8.3 MG/DL (8.5-10.1); CARBON DIOXIDE 32 MMOL/L (21-32); CHLORIDE 101 MMOL/L (98-107); CHOLESTEROL 159 MG/DL (< 200); CREATININE SERUM 0.67 MG/DL (0.60-1.30); GFR ESTIMATED > 60; GLUCOSE 107 MG/DL (70-105); HDL CHOLESTEROL 40 MG/DL (40-60); POTASSIUM 3.8 MMOL/L (3.6-5.0); SODIUM 139 MMOL/L (135-145); TOTAL PROTEIN 6.3 GM/DL (6.4-8.2); TRIGLYCERIDES 176 MG/DL (<150); VLDL CHOLESTEROL 35 MG/DL (5-40)
[2020-07-07] MEDS: ENOXAPARIN 100 MG/1 ML (LOVENOX) SYR SC SCH (06:16)
--- NOTE | 2020-07-07 08:31 | Cardiology Progress Note ---
Subjective Date Seen by Provider: Jul 07, 2020 Time Seen by Provider: 07:35 Subjective/Events-last exam Mr. Kidd was seen and examined in the cardiac stepdown unit this morning. He was resting comfortably upon entry. States he is still having chest pain but a bit improved from yesterday. Denies shortness of breath, dizziness, lightheadedness. Records have been reviewed from [facility] from March 2020. There is no record of a CTA demonstrating PE. Review of Systems General: No Chills, No Night Sweats, No Fatigue, No Malaise, No Appetite, No Other Pulmonary: No Dyspnea, No Cough, No Pleuritic Chest Pain, No Other Cardiovascular: Chest Pain; No: Palpitations, Orthopnea, Paroxysmal Noc. Dyspnea, Edema, Lt Headedness, Other Objective-Cardiology Exam Last Set of Vital Signs Vital Signs 07/07/20 07/07/20 07:52 08:36 Temp 36.0 Pulse 84 Resp 11 B/P (MAP) 114/85 (95) Pulse Ox 94 O2 Delivery Nasal Cannula O2 Flow Rate 4.00 Capillary Refill : Less Than 3 Seconds I&O Intake and Output0 07/07/20 00:00 Intake Total 2750 ml Output Total 375 ml Balance 2375 ml Intake Oral 750 ml IV Total 2000 ml Output Urine Total 375 ml Daily Weight Change No General: Alert, Oriented X3, Cooperative HEENT: Atraumatic, PERRLA Neck: Supple Lungs: Clear to Auscultation, Normal Air Movement Heart: Regular Rate, Normal S1, Normal S2, Other (reproducible chest pain to palpation) Abdomen: Normal Bowel Sounds, Soft, No Tenderness Extremities: No Clubbing, No Edema Skin: No Rashes, No Breakdown Neuro: Normal Speech Psych/Mental Status: Mental Status NL Results Lab Laboratory Tests 07/07/20 03:17 A/P-Cardiology Admission Diagnosis Hypoxia Chest pain History of PE Insect bite Assessment/Plan Chest pain and hypoxia, reporting history of pulmonary embolism but [facility] records do not have record of this. CTA chest 07/06 demonstrated no PE. Currently on therapeutic dose Lovenox. Questionable history of coronary artery disease, having reproducible chest pain, I am planning to evaluate stress test 07/07. Started on Lovenox and aspirin. CTA of chest did reveal esophageal inflammation, will have EGD per Dr. Lau on 07/07 before stress test. Echo on 07/06/2020 revealed EF 55-65% without other abnormality, PA pressure 30-35 mmHg. Questionable esophageal paresis reported during his hospitalization in [facility], CT of the chest at our institution reported thickening at the esophageal area. Dr. Lau was consulted and possible EGD today Hypertension, currently hypotensive, will not restart medications at this time, monitor closely. Suspected hyperlipidemia, triglyceride 176, total 159, LDL 106, HDL 40. Continue Lipitor, could transition to fenofibrate for triglyceride control. Tobaccoism, recommend complete cessation. Alcoholism, recommend complete cessation. Insect bite, work-up per primary team. Bipolar disorder, per primary team. Family history of heart disease and DM. Thank you for this consultation. Clinical Quality Measures AMI/AHF: ASA po Prior to arrival: No Supervisory-Addendum Brief Verification & Attestation Participated in pt care: history, MDM, physical Personally performed: exam, history, MDM, supervision of care Care discussed with: Medical Student Procedures: n/a Results interpretation: Verified all documentation Verification and Attestation of Medical Student E/M Service A medical student performed and documented this service in my presence. I reviewed and verified all information documented by the medical student and made modifications to such information, when appropriate. I personally performed the physical exam and medical decision making. Abdifatah Webb, Jul 07, 2020,10:44 GRANT AGUILA, Jul 07, 2020 08:31 ABDIFATAH WEBB MD Jul 07, 2020 10:44
--- NOTE | 2020-07-07 08:54 | Progress Note - Hospitalist ---
Subjective HPI/CC On Admission Date Seen by Provider: Jul 07, 2020 Mr. Kidd is a 49 year old man seen today due to chest pain and shortness of breath. He reports having sudden 8/10 sharp chest pain across his chest and epigastric region, at times radiating to his left shoulder. The pain is constant. He denies any inciting event for the pain or shortness of breath, and denies that anything aggravates or alleviates the pain. He did attempt to treat the pain by drinking a half pint of vodka, but this did not help his pain. He reports being hospitalized for a pulmonary embolism in a hospital in [place] several months ago, but did not remember which, and did not take any medication after being released from the hospital. He reports that the pain he is having now is the same as the pain from that hospitalization for a pulmonary embolism. He reports having some intermittent dizziness since yesterday, as well as nausea with one episode of vomiting due to pain. He also reports having pain buttock pain bilaterally that is aggravated by standing up, and radiates down the back of his legs to his knees. He denies having any fevers or chills, vision or sensory changes, palpitations, edema, cough, constipation, diarrhea, dysuria or frequency. Subjective/Events-last exam Mr. Kidd reports feeling better today. He describes his CP as a 2 or 3/10 today. He denies having any shortness of breath or nausea. Denies any fevers/chills, dizziness, palpitations, cough. Review of Systems General: No Chills, No Night Sweats HEENT: No Visual Changes, No Sinus Congestion Pulmonary: No Dyspnea, No Cough Cardiovascular: No: Chest Pain, Palpitations, Edema Gastrointestinal: No: Nausea, Vomiting, Abdominal Pain, Diarrhea, Constipation Genitourinary: No Dysuria, No Frequency, No Retention Neurological: No: Weakness, Numbness, Confusion Objective Exam Vital Signs Vital Signs Date Time Temp Pulse Resp B/P (MAP) Pulse Ox O2 Delivery O2 Flow Rate FiO2 07/07/20 13:50 74 20 98 Room Air 07/07/20 13:40 5 07/07/20 12:25 37.0 140/96 (111) Capillary Refill : Less Than 3 Seconds General Appearance: No Apparent Distress, Obese HEENT: PERRL/EOMI; No Pale Conjunctivae (L), No Pale Conjunctivae (R), No Scleral Icterus (L), No Scleral Icterus (R) Neck: Normal Inspection, Non Tender, Supple Respiratory: Lungs Clear, No Accessory Muscle Use, No Respiratory Distress Cardiovascular: Regular Rate, Rhythm, No Edema, No Murmur, Normal Peripheral Pulses Gastrointestinal: Normal Bowel Sounds, No Organomegaly, Soft, Tenderness (mild tenderness in epigastric region and lower quadrants) Extremity: Normal Capillary Refill, Non Tender, No Calf Tenderness, No Pedal Edema Neurologic/Psychiatric: Alert, Oriented x3, Normal Mood/Affect Skin: Normal Color, Warm/Dry Results/Procedures Lab Laboratory Tests 07/07/20 03:17 Patient resulted labs reviewed. Assessment/Plan Assessment and Plan Assess & Plan/Chief Complaint Chest pain and shortness of breath w/ history of pulmonary embolism * Cardiology following, ordered stress test today * Patient reported history of 'clot in lungs', but records from [facility] do not have records of this * CT angio impression: No evidence of pulmonary embolism or thoracic aortic dissection. CT does reveal bibasilar subsegmental atelectasis as well as distal esophageal wall thickening. * Echo shows EF 55-65%, no wall motion abnormalities, elevated PA systolic pressure of 30-35 * D-dimer elevated at 0.57 * Troponins negative * Enoxaparin 100 mg sc bid * Acetaminophen 500 mg q4h prn for chest pain, as well as toradol 15 mg IV q6h prn * Nitro 0.4 mg prn * Aspirin 81 mg po Nausea/Vomiting * CT shows distal esophageal wall thickening, recommends correlation with endoscopy for further evaluation. Plan for endoscopy today. * With metabolic alkalosis on ABG, history of vomiting this morning after alcohol the previous night, as well as tenderness to palpation of chest and epigastric region, and GI cocktail in ED alleviating chest pain somewhat, vomiting may be a cause of chest pain * Pantoprazole 40 mg * Ondansetron 4 mg IV prn Tick bites * Ticks removed 07/06, serologies equivocal for tularemia, negative for lyme, others pending * Doxycycline 200 mg PO given 07/06 Bipolar disorder * continue home quetiapine COPD * reports history of COPD but does not take any medications for it Tobacco Abuse * Patient stated he was not ready to quit Clinical Quality Measures AMI/AHF: ASA po Prior to arrival: No PAM WREN MED STUDENT Jul 07, 2020 08:54
[2020-07-07] MEDS ORDERED: PANTOPRAZOLE 40 MG (PROTONIX) TAB PO SCH (09:00)
[2020-07-07] MEDS ORDERED: ASPIRIN E.C. 81 MG (ECOTRIN) TAB PO SCH (09:00)
[2020-07-07] MEDS ORDERED: KETOROLAC 15 MG/ML VIAL ONE (09:59)
[2020-07-07] MEDS: NS IV 1000 ML 1,000 ML IV SCH (10:02)
[2020-07-07] MEDS ORDERED: KETOROLAC 15 MG/ML VIAL IVP ONE (10:15)
[2020-07-07] MEDS ORDERED: KETOROLAC 15 MG/ML VIAL IVP PRN (10:15)
--- NOTE | 2020-07-07 11:11 | Consultation - Surgery ---
JOHNATHAN HERNANDEZ MED STUDENT 07/07/20 1111: History of Present Illness History of Present Illness Patient Consulted On(alexx/time) 07/07/20 8:00 Date Seen by Provider: Jul 07, 2020 Time Seen by Provider: 08:20 Reason for Visit: EGD d/t CT findings History of Present Illness Main Kidd is a 49 yo M who presented to the ED on 07/06 with several hours of constant sharp mid-sternal non-radiating chest pain and nausea. His pain is currently 3/10 severity, was 8/10 when at its worst. His nausea is present but mild, rated 3/10. Surgery was consulted after CT angiogram of the thorax was negative for PE but found distal esophageal wall thickening. The patient is also being worked up by cardiology without cardiovascular etiology of his chest pain discovered thusfar. He does have history of alcohol abuse and [place], [place] records report hx GI bleed and esophageal varices. The patient is a poor historian with respect to his PMH, states he did have an EGD less than 5 years ago but does not know what they found. He says he was told to take a medicine but has not done so due to the expense. Allergies and Home Medications Allergies Coded Allergies: No Known Drug Allergies (Unverified , 07/06/20) Home Medications Mirtazapine 15 Mg Tablet, 15 MG PO HS, (Reported) Quetiapine Fumarate 400 Mg Tablet, 400 MG PO HS, (Reported) Past Xueecqa-Vuejgg-Ttrwgj Hx Patient Social History Smoking Status: Current Everyday Smoker Cigarettes Per Day: 1 (35 pack year hx) Type Used: Cigarettes Recent Hopitalizations: No Alcohol Use?: Yes Have you traveled recently?: No Seasonal Allergies Seasonal Allergies: No Surgeries History of Surgeries: Yes Surgeries: Orthopedic Respiratory History of Respiratory Disorde: Yes Respiratory Disorders: COPD Cardiovascular History of Cardiac Disorders: Yes Cardiac Disorders: Heart Attack, Hypertension Neurological History of Neurological Disord: No Genitourinary History of Genitourinary Disor: No Gastrointestinal Gastrointestinal Disorders: Gastroesophageal Reflux Musculoskeletal History of Musculoskeletal Dis: No Endocrine History of Endocrine Disorders: No HEENT History of HEENT Disorders: No Cancer History of Cancer: No Psychosocial History of Psychiatric Problem: No Integumentary History of Skin or Integumenta: No Blood Transfusions History of Blood Disorders: No Family Medical History Significant Family History: Heart Disease, Diabetes Physical Exam-General Problems Physical Exam Vital Signs Vital Signs - First Documented 07/06/20 07/06/20 07/06/20 04:20 05:40 06:12 Temp 37.4 Pulse 106 Resp 18 B/P (MAP) 127/68 (87) Pulse Ox 92 O2 Delivery Room Air O2 Flow Rate 2.00 Capillary Refill : Less Than 3 Seconds General Appearance: WD/WN, no apparent distress HEENT: PERRL/EOMI Neck: normal inspection Respiratory: chest non-tender, lungs clear, normal breath sounds, no respiratory distress, no accessory muscle use Cardiovascular: regular rate, rhythm, no edema, no murmur Gastrointestinal: soft, tenderness (minimal suprapubic tenderness bilaterally, no other abdominal tenderness) Extremities: no pedal edema Neurologic/Psychiatric: alert, oriented x 3 Skin: normal color, warm/dry Lymphatic: no adenopathy Data Review Labs Laboratory Tests 07/06/20 12:10: Troponin I < 0.028, Lyme Disease Screen IgG & IgM Ab 0.11, Lyme Antibody Interpretation Negative, [place] Antibody 1:20H 07/07/20 03:17: Troponin I < 0.028, White Blood Count 7.7, Red Blood Count 4.44, Hemoglobin 11.5L, Hematocrit 37L, Mean Corpuscular Volume 83, Mean Corpuscular Hemoglobin 26, Mean Corpuscular Hemoglobin Concent 31L, Red Cell Distribution Width 19.5H, Platelet Count 207, Mean Platelet Volume 10.4, Sodium Level 139, Potassium Level 3.8, Chloride Level 101, Carbon Dioxide Level 32, Anion Gap 6, Blood Urea Nitrogen 16, Creatinine 0.67, Estimat Glomerular Filtration Rate > 60, BUN/Creatinine Ratio 24, Glucose Level 107H, Calcium Level 8.3L, Corrected Calcium 8.7, Total Bilirubin 0.5, Aspartate Amino Transf (AST/SGOT) 18, Alanine Aminotransferase (ALT/SGPT) 21, Alkaline Phosphatase 75, Total Protein 6.3L, Albumin 3.5, Triglycerides Level 176H, Cholesterol Level 159, LDL Cholesterol Direct 106, VLDL Cholesterol 35, HDL Cholesterol 40 Assessment/Plan Assessment/Plan Assessment/Plan chest pain CTA showing increased esophageal thickness history EtOH abuse, esophageal varices, prior GI bleed per [place], [place] records plan to do EGD. Borderline D-Dimer, CTA negative for PE Negative Troponin, cardiology following to exclude cardiac etiology of chest pain. Clinical Quality Measures AMI/AHF: ASA po Prior to arrival: No LOUISA MOSELEY DO 07/07/20 1258: History of Present Illness History of Present Illness Time Seen by Provider: 12:41 History of Present Illness Surgery asked to consult regarding chest pain, hx of esophageal varices; possible EGD. HPI per ED: 49 yo male presenting by EMS with complaints of sharp chest pains, epigastric pain, n/v, heartburn. He is complaining of sharp pains that have been hurting all night. He states that 2 to 3 months ago he was diagnosed with a PE and never completed treatment for that. He has a history of a prior heart attack several years ago and does not take any medication for that. He does dr ink alcohol on a daily basis and drank some last night to try and help with his pain. He feels more short of breath tonight. He activated EMS to have them bring him to be evaluated. He usually goes to [facility] but the [facility] ambulance service refused to take him north and brought him here instead. He reports smoking a pack of cigarettes a day. He is moaning and short tempered with staff. Severity/Quality: severe, sharp Location: substernal, epigastric Radiation: no radiation Activities at Onset: none Prior CP/Workup: heart attack (reports heart attack 6-8 years ago at [facility] when having similar pains) ASA po HEAD OF DIGITAL: No NTG SL HEAD OF DIGITAL: No Associated Symptoms: abdominal pain, back pain (chronic pain with radiation down his legs); No diaphoresis, No dizziness, No fatigue, No fever/chills, No headache; heartburn, nausea/vomiting, shortness of breath; No syncope When I spoke to pt he stated his pain is better; "but still there". He thinks it feels like last time when he had EGD and states he has had "internal bleeding". Allergies and Home Medications Allergies Coded Allergies: No Known Drug Allergies (Unverified , 07/06/20) Home Medications Mirtazapine 15 Mg Tablet, 15 MG PO HS, (Reported) Quetiapine Fumarate 400 Mg Tablet, 400 MG PO HS, (Reported) Patient Home Medication List Home Medication List Reviewed: Yes Past Wmfmtfs-Dztseq-Bcibdx Hx Patient Social History Smoking Status: Current Everyday Smoker Alcohol Use?: Yes Surgeries History of Surgeries: Yes (EGD) Respiratory History of Respiratory Disorde: Yes Respiratory Disorders: COPD Cardiovascular History of Cardiac Disorders: Yes Cardiac Disorders: Heart Attack Neurological History of Neurological Disord: Yes Neurological Disorders: Neuropathy Genitourinary History of Genitourinary Disor: No Gastrointestinal History of Gastrointestinal Di: Yes Gastrointestinal Disorders: Gastrointestinal Bleed, Esophageal Varices Musculoskeletal History of Musculoskeletal Dis: Yes Musculoskeletal Disorders: Arthritis Endocrine History of Endocrine Disorders: No HEENT History of HEENT Disorders: No Loss of Vision: Denies Hearing Impairment: Denies Cancer History of Cancer: No Psychosocial History of Psychiatric Problem: Yes Behavioral Health Disorders: Bipolar Family Medical History Significant Family History: Cancer (Mother had Lung CA) Review of Systems-General Constitutional: No chills, No fever EENTM: No blurred vision, No mouth pain, No mouth swelling, No epistaxis Respiratory: No cough; dyspnea on exertion; No hemoptysis; short of breath Cardiovascular: chest pain, Hx of Intervention; No palpitations Gastrointestinal: abdominal pain; No jaundice; nausea; No vomiting Genitourinary: No dysuria, No frequency, No hematuria Musculoskeletal: joint pain, joint swelling, muscle pain, muscle stiffness Psychiatric/Neurological: Anxiety, Depressed; Denies Seizure, Denies Tremors Other Pt denies any abnormal bleeding or bruising Physical Exam-General Problems Physical Exam General Appearance: WD/WN, no apparent distress Eyes: Bilateral Eye PERRL, Bilateral Eye EOMI HEENT: No scleral icterus (R), No scleral icterus (L) Neck: No carotid bruit, No thyromegaly Respiratory: chest non-tender, lungs clear, normal breath sounds, no respiratory distress, no accessory muscle use Cardiovascular: regular rate, rhythm, no murmur Gastrointestinal: soft, no organomegaly, tenderness (minimal suprapubic tenderness bilaterally, no other abdominal tenderness) Extremities: no pedal edema Neurologic/Psychiatric: strip roller II-XII nml as tested, no motor/sensory deficits, alert, oriented x 3 Skin: normal color, warm/dry Lymphatic: no adenopathy (neck, axilla or groin) Data Review Radiology Date of Exam:07/06/20 CT ANGIO CHEST W PROCEDURE: CT angiography of the chest with contrast. TECHNIQUE: Multiple contiguous axial images were obtained through the chest after uneventful bolus administration of intravenous contrast. 3D reconstructed CTA MIP acquisitions were also performed. Auto Exposure Controls were utilized during the CT exam to meet ALARA standards for radiation dose reduction. INDICATION: Hypoxia. COMPARISON: No prior studies are available for comparison. FINDINGS: Evaluation of the pulmonary arterial system is without evidence of thromboembolism. No definite filling defects are seen within central, lobar or segmental branches. Thoracic aorta is normal caliber. There is no dissection. No pericardial or pleural fluid is identified. Lung bases demonstrate linear atelectasis bilaterally, greatest on the left. There is calcified granuloma in the right lower lobe. There does appear to be circumferential wall thickening of the distal esophagus. Upper abdomen is unremarkable. IMPRESSION: 1. No evidence of pulmonary embolism or thoracic aortic dissection. 2. Bibasilar subsegmental atelectasis. 3. Distal esophageal wall thickening. Correlation with endoscopy would be recommended for further evaluation. Dictated by: Dictated on workstation # [id number] Dict: 07/06/20 1355 Trans: 07/06/20 1557 [facility] [id number] Interpreted by: DIEGO DAHL MD Electronically signed by: DIEGO DAHL MD 07/06/20 1557 Assessment/Plan Assessment/Plan Assessment/Plan Chest pain Hx of Esophageal Varices EtOH abuse Plan EGD with possible biopsy; discussed risks and complications with pt, not limited to pain, bleeding, infection and even esophageal perforation. All questions answered to pt's satisfaction. Supervisory-Addendum Brief Verification & Attestation Participated in pt care: history, MDM, physical Personally performed: exam, history, MDM Care discussed with: Medical Student Procedures: n/a Verification and Attestation of Medical Student E/M Service A medical student performed and documented this service. I then reviewed and verified all information documented by the medical student and made modifications to such information, when appropriate. I personally performed a physical exam, medical decision making and then discussed any differences between the notes and made revisions as necessary to create one note. Louisa Moseley , 07/07/20 , 13:02 JOHNATHAN HERNANDEZ MED STUDENT Jul 07, 2020 11:11 LOUISA MOSELEY DO Jul 07, 2020 12:58
[2020-07-07] MEDS ORDERED: REGADENOSON 0.4 MG/5 ML SYR (LEXISCAN) IV ONE (11:36)
--- NOTE | 2020-07-07 12:39 | Cardiology Stress Test Report ---
Stress Test Report Date of Procedure/Referring: Date of Procedure: Jul 07, 2020 PCP Joan Pearce MD Admitting Physician No,Local Physician Indications: CP Baseline Heart Rate: 76 Baseline Blood Pressure: Blood Pressure Systolic: 140 Blood Pressure Diastolic: 96 Baseline Vitals Vital Signs Date Time Temp Pulse Resp B/P (MAP) Pulse Ox O2 Delivery O2 Flow Rate FiO2 07/06/20 04:20 Room Air 07/06/20 04:20 37.4 106 18 92 07/06/20 05:40 2.00 Baseline EKG: Baseline EKG: NSR Summary After explaining the procedure to the patient, he signed a consent and then brought to the stress nuclear laboratory. Patient received 0.4 mg Lexiscan for stress test, ECG, heart rate and blood pressure were monitored continuously. Resting and stress dose of radio tracer were injected, imaging was acquired and reviewed in short axis, horizontal long axis and vertical long axis views. TID: 0.95 SSS: 0 SDS: 0 EF: 56 1. Patient tolerated Lexiscan well 2. Diaphragmatic attenuation affecting the quality of the images, there is no significant ischemia or infarction on SPECT images 3. Normal left ventricular size, EF 56% ABDIFATAH WHEELER MD Jul 07, 2020 12:39
[2020-07-07] MEDS ORDERED: LACTATED RINGERS 1,000 ML IV ONE (13:11)
[2020-07-07] MEDS ORDERED: proPOfol 200 MG/20 ML (DIPRIVAN) VIAL IV ONE ×2 (13:12→13:25)
[2020-07-07] MEDS ORDERED: MIDAZOLAM 2 MG/2 ML (VERSED) VIAL ONE (13:13)
[2020-07-07] MEDS ORDERED: LACTATED RINGERS 1,000 ML IV PRN (13:15)
--- NOTE | 2020-07-07 13:38 | Progress Note-Post Operative ---
Post-Operative Progess Note Surgeon (s)/Communications Engineering Technician (s) Surgeon LOUISA MOSELEY DO Communications Engineering Technician: none Pre-Operative Diagnosis Chest pain, Hx of Esophageal varices Post-Operative Diagnosis Esophageal ulcers Gastric ulcers Hiatal hernia Gastritis Procedure & Operative Findings Date of Procedure 07/07/20 Procedure Performed/Findings EGD with bx Anesthesia Type IV sedation by COLLECTIONS AND ARCHIVES DIRECTOR Estimated Blood Loss Estimated blood loss (mL): scant Specimens/Packing Specimens Removed antral bx LOUISA MOSELEY DO Jul 07, 2020 13:38
[2020-07-07] MEDS ORDERED: CALC200T40 PO (14:01)
[2020-07-07] MEDS ORDERED: PANT40TA52 PO (14:01)
[2020-07-07] MEDS ORDERED: ASPI-1238 PO (14:01)
--- NOTE | 2020-07-07 14:05 | Discharge Inst-Simple/Standard ---
Discharge Inst-Standard Patient Instructions/Follow Up Plan of Care/Instructions/FU: Please continue to take your medications as written. Please follow up with your primary care doctor to follow up this hospital stay. Activity as Tolerated: Yes Discharge Diet: Cardiac Diet Return to The Hospital For: Chest pain, shortness of breath, confusion, fever, if you feel you are getting worse. MED PARKER MD Jul 07, 2020 14:05
--- NOTE | 2020-07-07 14:08 | Anesthesia-General Post-Op ---
MAC Patient Condition Mental Status/LOC: Same as Preop Cardiovascular: Satisfactory Nausea/Vomiting: Absent Respiratory: Satisfactory Pain: Controlled Complications: Absent Post Op Complications Complications None Follow Up Care/Instructions Patient Instructions None needed. Anesthesiology Discharge Order Discharge Order Patient is doing well, no complaints, stable vital signs, no apparent adverse anesthesia problems. No complications reported per nursing. SHAWNEE VALENTINO CRNA Jul 07, 2020 14:08
--- NOTE | 2020-07-07 14:58 | Discharge Summary ---
PAM WREN MED STUDENT 07/07/20 1458: Diagnosis/Chief Complaint Date of Admission Jul 06, 2020 at 09:10 Date of Discharge Discharge Date: Jul 07, 2020 Admission Diagnosis Chest pain Primary Care No,Local Physician Discharge Summary Discharge Physical Exam Allergies: Coded Allergies: No Known Drug Allergies (Verified , 07/07/20) Vitals & I&Os Vital Signs Date Time Temp Pulse Resp B/P (MAP) Pulse Ox O2 Delivery O2 Flow Rate FiO2 07/07/20 13:50 74 20 98 Room Air 07/07/20 13:40 5 07/07/20 12:25 37.0 140/96 (111) General Appearance: No Apparent Distress, Obese HEENT: PERRL/EOMI; No Pale Conjunctivae (L), No Pale Conjunctivae (R), No Scleral Icterus (L), No Scleral Icterus (R) Respiratory: Lungs Clear, Normal Breath Sounds, No Accessory Muscle Use, No Respiratory Distress Cardiovascular: Regular Rate, Rhythm, No Edema, No Murmur, Normal Peripheral Pulses Gastrointestinal: Normal Bowel Sounds, No Organomegaly, Soft, Tenderness (epigastric and lower abdominal quadrants) Extremity: Normal Capillary Refill, Non Tender, No Calf Tenderness, No Pedal Edema Skin: Normal Color, Warm/Dry Neurologic/Psychiatric: Alert, Oriented x3, Normal Mood/Affect Hospital Course Mr. Kidd is a 49 year old man admitted 07/06 from the [place] ED due to chest pain and shortness of breath. He reports having sudden 8/10 sharp chest pain across his chest and epigastric region, at times radiating to his left shoulder. The pain was constant. He denied any inciting event for the pain or shortness of breath, and denies that anything aggravated or alleviated the pain. He did attempt to treat the pain the previous evening by drinking a half pint of vodka, but this did not help. He reported the pain was the same he felt from a prior hospitalization in [place] several months ago for a 'clot in his lungs', but he did not remember which hospital, and did not take any medication after being discharged. Other symptoms he reported were nausea and one episode of vomiting that morning. He also reported having pain buttock pain bilaterally for the past several months that is aggravated by standing up, and radiates down the back of his legs to his knees. While in the ED he was treated with a GI cocktial which helped his pain somewhat, and he was later given morphine. D- dimer was elevated at 0.57 and troponins were negative. After admission, he was treated for DVT with lovenox, and was given ondansetron and pantoprazole. He was also given doxycycline after multiple ticks were found on his body. His chest pain was treated with acetaminophen. CT angio later showed no evidence of pulmonary embolism or thoracic aortic dissection, but it did reveal bibasilar subsegmental atelectasis as well as distal esophageal wall thickening. Echo showed EF 55-65%, no wall motion abnormalities, and elevated PA systolic pressure of 30-35. Records from [facility] showed no record of admission for pulmonary embolism. On 07/07 Mr. Kidd reported his chest pain had improved to a 2 or 3/10, and denied any further shortness of breath or nausea. He later reported that his pain wasn't adequately controlled, and he was started on IV toradol. He underwent a stress test, which was negative for any ischemia or infarct, and showed an EF of 56% with normal LV size. EGD that day showed esophageal ulcers, gastric ulcers, hiatal hernia, and gastritis. He was discharged on 07/07 encour ed to take medications as prescribed and to follow up with his PCP. Labs (last 24 hrs) Laboratory Tests 07/07/20 03:17: White Blood Count 7.7, Red Blood Count 4.44, Hemoglobin 11.5L, Hematocrit 37L, Mean Corpuscular Volume 83, Mean Corpuscular Hemoglobin 26, Mean Corpuscular Hemoglobin Concent 31L, Red Cell Distribution Width 19.5H, Platelet Count 207, Mean Platelet Volume 10.4, Sodium Level 139, Potassium Level 3.8, Chloride Level 101, Carbon Dioxide Level 32, Anion Gap 6, Blood Urea Nitrogen 16, Creatinine 0.67, Estimat Glomerular Filtration Rate > 60, BUN/Creatinine Ratio 24, Glucose Level 107H, Calcium Level 8.3L, Corrected Calcium 8.7, Total Bilirubin 0.5, Aspartate Amino Transf (AST/SGOT) 18, Alanine Aminotransferase (ALT/SGPT) 21, Al kaline Phosphatase 75, Troponin I < 0.028, Total Protein 6.3L, Albumin 3.5, Triglycerides Level 176H, Cholesterol Level 159, LDL Cholesterol Direct 106, VLDL Cholesterol 35, HDL Cholesterol 40 Patient resulted labs reviewed. Discharge Home Medications: Active Scripts Active Aspirin EC (Aspirin) 81 Mg Tablet. 81 Mg PO DAILY Calcium Antacid (Calcium Carbonate) 200 Mg Tab.chew 500 Mg PO QID PRN 30 Days Pantoprazole Sodium 40 Mg Tablet. 40 Mg PO DAILY Reported Mirtazapine 15 Mg Tablet 15 Mg PO HS Quetiapine Fumarate 400 Mg Tablet 400 Mg PO HS Instructions to patient/family Please see electronic discharge instructions given to patient. Clinical Quality Measures AMI/AHF: ASA po Prior to arrival: No MED PEARCE MD 07/08/20 1119: Discharge Summary Discharge Physical Exam Allergies: Coded Allergies: No Known Drug Allergies (Verified , 07/07/20) Discussion & Recommendations Discharge Planning: >30 minutes discharge planning In preparation for discharge it was found that Mr Kidd had a continuous oxygen requirement. extrusion utility worker and discharge planners were attempting to arrange this for him but had difficulties due to lack of insurance and that he lives out of town. Plan was in place to keep one more night to allow time to arrange for oxygen through a national company and discharge once safe plan was in place. Patient declined this and choose to leave AMA. Paperwork signed. Supervisory-Addendum Brief Verification & Attestation Participated in pt care: history, MDM, physical Personally performed: exam, history, MDM, supervision of care Care discussed with: Medical Student Procedures: n/a Results interpretation: Verified all documentation Verification and Attestation of Medical Student E/M Service A medical student performed and documented this service in my presence. I reviewed and verified all information documented by the medical student and made modifications to such information, when appropriate. I personally performed the physical exam and medical decision making. Med Pearce, Jul 08, 2020,11:19 PAM WREN MED STUDENT Jul 07, 2020 14:58 MED PEARCE MD Jul 08, 2020 11:19
[2020-07-07 15:35] VITALS: BP 133/81
--- NOTE | 2020-07-07 21:42 | OPERATIVE REPORT ---
DATE OF SERVICE: PREOPERATIVE DIAGNOSES: Chest pain, history of esophageal varices. POSTOPERATIVE DIAGNOSES: Esophageal ulcers, gastric ulcers with gastritis and a hiatal hernia. PROCEDURE: EGD with biopsy. SURGEON: Oscar Lau DO NET FISHER: None. ANESTHESIA: IV sedation by the WHARF HELPER. SPECIMEN: Biopsy from the antrum. BLOOD LOSS: Scant. FLUIDS: Per anesthesia. POSTOPERATIVE CONDITION: Stable. INDICATION FOR PROCEDURE: The patient is a 49-year-old male, who came in with chest pain, midsternal, history of esophageal varices, needed a workup. FINDINGS: The patient had pretty severe ulceration in the lower esophagus and as well he had some ulcers and gastritis in the antrum. Duodenum looked okay. He had a pretty large hiatal hernia as well. PROCEDURE NOTE: After informed consent was obtained, the patient was brought to the endoscopy suite, placed in bed in left lateral decubitus position. He was administered IV sedation by the WHARF HELPER who then monitored his vitals the entire time, heart rate, blood pressure and pulse ox. A scope was placed down the mouth through the esophagus and into the stomach. On the way through the esophagus, noted some very severe ulcerations, took a picture of this and then pushed into the stomach, some gastritis and ulcerations in the antrum, pushing the duodenum, able to get into the duodenum and took a picture, duodenum looked okay. Pulled back, did a biopsy of one of the ulcers in the antrum. Retroflexed the scope, saw hiatal hernia and then pulled the scope into the esophagus, again saw the hiatal hernia and the severe ulcerations. I elected not to do a biopsy here because of his history of esophageal varices, would rather try and get this calmed down with a PPI or another acid associate professor of literacy, suctioned all the air out of stomach and then pulled the scope up the esophagus and out the mouth. The patient tolerated the procedure, recovered in endoscopy suite. Job ID: [id number] DocumentID: [id number] Dictated Date: 07/07/2020 13:44:05 House Steward/Stewardess Date: 07/07/2020 21:42:12 Dictated By: OSCAR LAU DO [facility]
--- NOTE | 2020-07-11 11:29 | Physician Query Clarification ---
PQ-Further Specificity Admission/Discharge Admission Date: Jul 06, 2020 at 09:10 Discharge Date: Jul 07, 2020 at 16:27 , The medical record reflects the following clinical scenario: History/Risk Factors: chest pain, epigastric pain Clinical Findings: EGD w/bx showed lower esophageal ulcer, gastric ulcer, hiatal hernia and gastritis Treatment: Protonix, antacids, toradol Question: Can you further specify the underlying cause of the chest pain/epigastric pain per the clinical indicators above? Please document a response in the Progress Notes or Discharge Summary. 1. lower esophageal ulcer 2. gastritis 3. chest pain/epigastric pain etiolog undetermined 4. Other, with explanation of the clinical findings. 5. Clinically undetermined, no explanation for the clinical findings. PHYSICIAN RESPONSE Can you specify per above: Other, explanation/clinical finding Explanation/Clinical Findings The pain is caused by both the ulcer and gastritis Please remember a lack of response to the above will prompt a phone page by [facility] staff. In responding to this query, please exercise your independent professional judgment. The purpose of this communication is to more accurately reflect the complexity of your patients condition. The fact that a question is asked does not imply that any particular answer is desired or expected. Thank you for your timely response to this clarification. Requestors name: [email or web address] THIS PHYSICIAN QUERY FORM IS A PERMANENT PART OF THE MEDICAL RECORD SAMEER CORBIN Jul 11, 2020 11:29 MED PARKER MD Jul 17, 2020 20:02
== END 2020-07-07 16:27 | disposition left against medical advice (07) | DRG 381 ==
LOC: ER FS 04:18 → CSD 09:10
PROVIDERS: ADMIT Family Medicine; ATTEND Family Medicine
PROC: 0DB78ZX Excision of Stomach, Pylorus, Via Natural or Artificial Opening Endoscopic, Diagnostic (ICD-10-PCS; principal; 2020-07-07)
DX: K22.10 Ulcer of esophagus without bleeding (principal); E87.3 Alkalosis; I82.409 Acute embolism and thrombosis of unspecified deep veins of unspecified lower extremity; K25.3 Acute gastric ulcer without hemorrhage or perforation; K29.70 Gastritis, unspecified, without bleeding; K44.9 Diaphragmatic hernia without obstruction or gangrene; R09.02 Hypoxemia; F10.129 Alcohol abuse with intoxication, unspecified; F31.9 Bipolar disorder, unspecified; E78.5 Hyperlipidemia, unspecified; M54.5 Low back pain; F41.9 Anxiety disorder, unspecified; K21.9 Gastro-esophageal reflux disease without esophagitis; M19.91 Primary osteoarthritis, unspecified site; F17.210 Nicotine dependence, cigarettes, uncomplicated; J44.9 Chronic obstructive pulmonary disease, unspecified; I10 Essential (primary) hypertension; E66.9 Obesity, unspecified; Z68.33 Body mass index [BMI] 33.0-33.9, adult; G62.9 Polyneuropathy, unspecified; S30.861A Insect bite (nonvenomous) of abdominal wall, initial encounter; W57.XXXA Bitten or stung by nonvenomous insect and other nonvenomous arthropods, initial encounter; Z86.711 Personal history of pulmonary embolism; I25.2 Old myocardial infarction
CPT/HCPCS: 36415; 71045; 71275; 78452; 80053; 80061; 80306; 80320; 81000; 82805; 83690; 83735; 83880; 84484; 85007; 85027; 85379; 85610; 85730; 86618; 86666; 86668; 86757; 88305; 88342; 93005; 93017; 93041; 93306; 96372; 96374; 96375; 96376